=== PATIENT | male | born 1995 | race Caucasian/White ===

== ENCOUNTER → 2016-04-11 | Outpatient (CLI) | payer BC ==
[~2016-04-11] MED LIST: BACTRIM DS 8001 TAB PO; CELLCEPT 250MG250 MG PO; ENTOCORT EC3 MG PO; FISH OIL1000 MG PO; NO HOME MEDICATIONS; ZOFRAN 4MG T4 MG/TAB PO
== END ==
LOC: WCC 04-02 15:54
DX: L05.01 Pilonidal cyst with abscess (principal)
CPT/HCPCS: 27514; G0463

== ENCOUNTER → 2016-04-25 | Outpatient (CLI) | payer BC | LOC: WCC 09:51 | DX: L05.01 Pilonidal cyst with abscess (principal) | CPT/HCPCS: 21064; A6021; G0463 ==

== ENCOUNTER → 2016-05-23 | Outpatient (CLI) | payer BC | LOC: WCC 09:44 | DX: L05.01 Pilonidal cyst with abscess (principal) | CPT/HCPCS: 21064; A6021; G0463 ==

== ENCOUNTER → 2016-06-06 | Outpatient (CLI) | payer BC | LOC: WCC 10:23 | DX: L05.01 Pilonidal cyst with abscess (principal) | CPT/HCPCS: G0463 ==

== ENCOUNTER → 2016-06-09 | Outpatient (CLI) | payer BC | LOC: WCC 10:24 | DX: L05.01 Pilonidal cyst with abscess (principal) | CPT/HCPCS: G0463 ==

== ENCOUNTER → 2016-06-11 | Outpatient (CLI) | payer BC | LOC: WCC 11:23 | DX: L05.01 Pilonidal cyst with abscess (principal) | CPT/HCPCS: G0463 ==

== ENCOUNTER → 2016-06-13 | Outpatient (CLI) | payer BC | LOC: WCC 12:53 | DX: L05.01 Pilonidal cyst with abscess (principal) | CPT/HCPCS: G0463 ==

== ENCOUNTER → 2016-06-16 | Outpatient (CLI) | payer BC | LOC: WCC 08:40 | DX: L05.01 Pilonidal cyst with abscess (principal) | CPT/HCPCS: G0463 ==

== ENCOUNTER 2016-06-18 15:19 | Outpatient (RCR) | payer BC | END 2016-07-09 09:01 | disposition home or self-care (01) | LOC: EUO 15:19 | DX: Z48.01 Encounter for change or removal of surgical wound dressing (principal); L05.91 Pilonidal cyst without abscess ==

== ENCOUNTER → 2016-06-27 | Outpatient (CLI) | payer BC | LOC: WCC 14:38 | DX: L05.01 Pilonidal cyst with abscess (principal) | CPT/HCPCS: G0463 ==

== ENCOUNTER → 2016-07-21 | Outpatient (CLI) | payer BC | LOC: WCC 13:55 | DX: L05.01 Pilonidal cyst with abscess (principal) | CPT/HCPCS: G0463 ==

== ENCOUNTER → 2016-08-08 | Outpatient (CLI) | payer BC | LOC: WCC 09:50 | DX: T81.31XA Disruption of external operation (surgical) wound, not elsewhere classified, initial encounter (principal); L05.01 Pilonidal cyst with abscess | CPT/HCPCS: 17716; A6212; G0463 ==

== ENCOUNTER → 2016-08-22 | Outpatient (CLI) | payer BC | LOC: WCC 09:44 | DX: Z00.00 Encounter for general adult medical examination without abnormal findings (principal) ==

== ENCOUNTER → 2016-09-12 | Outpatient (CLI) | payer BC | LOC: WCC 09-04 11:11 | DX: L05.01 Pilonidal cyst with abscess (principal) | CPT/HCPCS: G0463 ==

== ENCOUNTER → 2016-10-14 | Outpatient (CLI) | payer BC | LOC: WCC 09-25 09:33 | DX: L05.01 Pilonidal cyst with abscess (principal) | CPT/HCPCS: G0463 ==

== ENCOUNTER → 2016-11-21 | Outpatient (CLI) | payer BC | LOC: WCC 09:04 | DX: L05.91 Pilonidal cyst without abscess (principal) | CPT/HCPCS: G0463 ==

== ENCOUNTER → 2016-12-05 | Outpatient (CLI) | payer BC | LOC: WCC 12-04 08:49 | DX: L05.91 Pilonidal cyst without abscess (principal) | CPT/HCPCS: G0463 ==

== ENCOUNTER → 2016-12-26 | Outpatient (CLI) | payer BC | LOC: WCC 13:09 | DX: L05.01 Pilonidal cyst with abscess (principal) | CPT/HCPCS: G0463 ==

== ENCOUNTER 2017-02-25 10:05 | Emergency (ER) | payer BC ==
[~2017-02-25] VITALS: Ht 188 cm; Wt 90.9 kg
[2017-02-25 10:07] VITALS: TEMP 98.6
[2017-02-25] MEDS ORDERED: OCALIVA5 MG PO (10:20)
[2017-02-25] MEDS ORDERED: URSO250 MG PO (10:23)
[2017-02-25 10:41] LABS: BASO % 0.2 % (0.0-2.0); EOS # 0.3 (0.0-0.7); EOS % 2.3 % (0-4.0); GRAN % 74.2 % (42.2-75.2); HEMATOCRIT 45.4 % (42.0-52.0); HEMOGLOBIN 15.2 g/dl (13.5-18.0); LYMPH # 1.9 (1.2-3.4); LYMPH % 15.9 % (20.0-51.0); MEAN CELL VOLUME 89 fl (80.0-100.0); MEAN CORPUSCULAR HEMOGLOBIN 30 pg (27.0-31.0); MEAN CORPUSCULAR HGB CONC 34 g/dl (33.0-37.0); MEAN PLATELET VOLUME 9.8 fl (7.4-10.4); MONO # 0.9 (0.1-0.6); MONO % 7.1 % (1.7-9.3); PLATELET COUNT 424 K/mm3 (130-400); RED BLOOD COUNT 5.08 M/mm3 (4.20-5.60); WHITE BLOOD COUNT 12.2 K/mm3 (4.8-10.8)
[2017-02-25 10:54] LABS: ADJUSTED CALCIUM 9.4 mg/dL (8.4-10.2); ALBUMIN 4.8 gm/dL (3.5-5.0); BILIRUBIN,TOTAL 0.8 mg/dL (0.0-1.0); POTASSIUM 4.1 mmol/L (3.4-5.0); TOTAL PROTEIN 8.9 gm/dL (6.4-8.2)
[2017-02-25 11:47] LABS: COLLECTION METHOD CLEAN CATCH
[2017-02-25 12:01] LABS: MUCOUS Present /lpf; PH 6 (5-8); SQUAMOUS EPITHELIAL None Seen /hpf; URINE APPEARANCE Clear; URINE BACTERIA None Seen /hpf; URINE BILIRUBIN Negative (NEGATIVE); URINE BLOOD Negative (NEGATIVE); URINE COLOR Yellow; URINE GLUCOSE Negative (NEGATIVE); URINE KETONE Trace (NEGATIVE); URINE LEUKOCYTE ESTERASE Negative (NEGATIVE); URINE PROTEIN(semi-quant) Negative (NEGATIVE); URINE RBC 0-2 /hpf; URINE UROBILINOGEN Negative (NEGATIVE); URINE WBC 0-2 /hpf
[2017-02-25] MEDS ORDERED: LEVAQUIN 5500 MG/TA1 PO (12:25)
[2017-02-25] MEDS ORDERED: NORCO 325 MG-51 TAB PO (12:33)
[2017-02-25 14:12] VITALS: BP 109/83; PULSE 87
== END 2017-02-25 14:14 | disposition home or self-care (01) ==
LOC: COL.ER 10:05
PROVIDERS: Family Medicine
DX: J18.9 Pneumonia, unspecified organism (principal); Z86.2 Personal history of diseases of the blood and blood-forming organs and certain disorders involving the immune mechanism
CPT/HCPCS: J0456; J0696; J1170; J1885; J2405; J7030; J7050; Q9967

== ENCOUNTER 2017-03-17 17:14 | Emergency (ER) | payer BC ==
[~2017-03-17] VITALS: Ht 188 cm; Wt 88.6 kg
[~2017-03-17 17:14] MED LIST changes: +LEVAQUIN 5500 MG/TA1 PO; +NORCO 325 MG-51 TAB PO; +OCALIVA5 MG PO; +URSO250 MG PO
[2017-03-17 17:22] VITALS: TEMP 97.7
[2017-03-17 17:45] LABS: COLLECTION METHOD CLEAN CATCH
[2017-03-17 17:58] LABS: BASO # 0.1 (0.0-0.2); BASO % 0.5 % (0.0-2.0); EOS # 0.4 (0.0-0.7); EOS % 3.5 % (0-4.0); GRAN % 65.2 % (42.2-75.2); HEMATOCRIT 44.2 % (42.0-52.0); HEMOGLOBIN 14.7 g/dl (13.5-18.0); LYMPH # 2.5 (1.2-3.4); LYMPH % 23.3 % (20.0-51.0); MEAN CELL VOLUME 90 fl (80.0-100.0); MEAN CORPUSCULAR HEMOGLOBIN 30 pg (27.0-31.0); MEAN CORPUSCULAR HGB CONC 33 g/dl (33.0-37.0); MONO # 0.8 (0.1-0.6); MONO % 7.2 % (1.7-9.3); PLATELET COUNT 471 K/mm3 (130-400); RED BLOOD COUNT 4.92 M/mm3 (4.20-5.60); WHITE BLOOD COUNT 10.7 K/mm3 (4.8-10.8)
[2017-03-17 18:07] LABS: ADJUSTED CALCIUM 9.5 mg/dL (8.4-10.2); ALBUMIN 4.8 gm/dL (3.5-5.0); BILIRUBIN,TOTAL 0.8 mg/dL (0.0-1.0); CALCIUM 10.1 mg/dL (8.4-10.2); CREATININE, serum 0.99 mg/dL (0.66-1.25); POTASSIUM 3.7 mmol/L (3.4-5.0); TOTAL PROTEIN 8.7 gm/dL (6.4-8.2)
[2017-03-17 18:28] LABS: MUCOUS Present /lpf; PH 6 (5-8); SQUAMOUS EPITHELIAL 0-2 /hpf; URINE APPEARANCE Hazy; URINE BACTERIA None Seen /hpf; URINE BILIRUBIN Negative (NEGATIVE); URINE BLOOD 2+ (NEGATIVE); URINE CALCIUM OXALATE CRYSTAL Present /hpf; URINE COLOR Yellow; URINE GLUCOSE Negative (NEGATIVE); URINE KETONE Negative (NEGATIVE); URINE LEUKOCYTE ESTERASE Negative (NEGATIVE); URINE PROTEIN(semi-quant) 1+ (NEGATIVE); URINE RBC >50 /hpf; URINE UROBILINOGEN Negative (NEGATIVE)
[2017-03-17] MEDS ORDERED: FLOMAX 0.40.4 MG/CAP PO (19:57)
[2017-03-17] MEDS ORDERED: CEPHALEXIN500 M1 PO (19:57)
[2017-03-17] MEDS ORDERED: PERCOCET 325 MG1 TA2 PO (19:57)
[2017-03-17] MEDS ORDERED: ROXICODONE 55 MG/TAB PO (20:09)
[2017-03-17 20:12] VITALS: BP 132/82; PULSE 76
== END 2017-03-17 20:13 | disposition home or self-care (01) ==
LOC: COL.ER 17:14
PROVIDERS: Emergency Medicine
DX: N20.0 Calculus of kidney (principal); K75.4 Autoimmune hepatitis
CPT/HCPCS: J1170; J1885; J7030; J7050; Q9967

== ENCOUNTER 2017-03-20 15:49 | Emergency (ER) | payer BC ==
[~2017-03-20] VITALS: Ht 188 cm; Wt 88.6 kg
[~2017-03-20 15:49] MED LIST changes: +CEPHALEXIN500 M1 PO; +FLOMAX 0.40.4 MG/CAP PO; +PERCOCET 325 MG1 TA2 PO; +ROXICODONE 55 MG/TAB PO
[2017-03-20 16:28] LABS: COLLECTION METHOD CLEAN CATCH
[2017-03-20 16:36] LABS: MUCOUS Present /lpf; PH 5 (5-8); SQUAMOUS EPITHELIAL None Seen /hpf; URINE APPEARANCE Clear; URINE BACTERIA None Seen /hpf; URINE BILIRUBIN Negative (NEGATIVE); URINE BLOOD 1+ (NEGATIVE); URINE COLOR Yellow; URINE GLUCOSE Negative (NEGATIVE); URINE KETONE Trace (NEGATIVE); URINE LEUKOCYTE ESTERASE Negative (NEGATIVE); URINE NITRATE Negative (NEGATIVE); URINE PROTEIN(semi-quant) Negative (NEGATIVE)
[2017-03-20 16:46] LABS: BASO # 0.1 (0.0-0.2); BASO % 0.4 % (0.0-2.0); EOS # 0.2 (0.0-0.7); GRAN # 9.6 (1.4-6.5); GRAN % 78.8 % (42.2-75.2); HEMATOCRIT 42.1 % (42.0-52.0); LYMPH # 1.5 (1.2-3.4); MEAN CELL VOLUME 91 fl (80.0-100.0); MEAN CORPUSCULAR HEMOGLOBIN 30 pg (27.0-31.0); MEAN CORPUSCULAR HGB CONC 33 g/dl (33.0-37.0); MEAN PLATELET VOLUME 10.2 fl (7.4-10.4); MONO # 0.8 (0.1-0.6); MONO % 6.5 % (1.7-9.3); PLATELET COUNT 425 K/mm3 (130-400); RED BLOOD COUNT 4.64 M/mm3 (4.20-5.60); REDCELL DISTRIBUTION WIDTH-CV 12.7 % (11.5-14.5)
[2017-03-20 16:53] LABS: ALBUMIN 4.7 gm/dL (3.5-5.0); BILIRUBIN,TOTAL 0.7 mg/dL (0.0-1.0); CALCIUM 9.9 mg/dL (8.4-10.2); CREATININE, serum 0.93 mg/dL (0.66-1.25); POTASSIUM 4.2 mmol/L (3.4-5.0); TOTAL PROTEIN 8.7 gm/dL (6.4-8.2)
[2017-03-20 18:54] VITALS: BP 161/83; PULSE 63; TEMP 97.1
== END 2017-03-20 18:51 | disposition home or self-care (01) ==
LOC: COL.ER 15:49
PROVIDERS: Emergency Medicine
DX: N20.1 Calculus of ureter (principal)
CPT/HCPCS: J1170; J2270; J7030

== ENCOUNTER 2017-08-02 13:41 | Emergency (ER) | payer OTHER ==
[~2017-08-02] VITALS: Ht 188 cm; Wt 82.7 kg
[2017-08-02 13:45] VITALS: TEMP 98.6
[2017-08-02 14:57] LABS: BASO # 0.1 (0.0-0.2); BASO % 0.8 % (0.0-2.0); EOS # 0.9 (0.0-0.7); EOS % 11.2 % (0-4.0); GRAN # 4.7 (1.4-6.5); GRAN % 61.2 % (42.2-75.2); HEMOGLOBIN 10.2 g/dl (13.5-18.0); LYMPH # 1.5 (1.2-3.4); LYMPH % 18.9 % (20.0-51.0); MEAN CELL VOLUME 82 fl (80.0-100.0); MEAN CORPUSCULAR HEMOGLOBIN 26 pg (27.0-31.0); MEAN CORPUSCULAR HGB CONC 32 g/dl (33.0-37.0); MEAN PLATELET VOLUME 10.2 fl (7.4-10.4); MONO # 0.6 (0.1-0.6); MONO % 7.6 % (1.7-9.3); PLATELET COUNT 474 K/mm3 (130-400); RED BLOOD COUNT 3.89 M/mm3 (4.20-5.60)
[2017-08-02 15:02] LABS: HEMATOCRIT 31.7 % (42.0-52.0)
[2017-08-02 15:03] LABS: ALBUMIN 3.3 gm/dL (3.5-5.0); C-REACTIVE PROTEIN 4.8 mg/dL (0.0-0.9); CALCIUM 8.7 mg/dL (8.4-10.2); CREATININE, serum 0.95 mg/dL (0.66-1.25); POTASSIUM 3.7 mmol/L (3.4-5.0); TOTAL PROTEIN 7.6 gm/dL (6.4-8.2)
[2017-08-02 15:25] LABS: ERYTHROCYTE SEDIMENTATION RATE 48 mm/hr (0-15)
[2017-08-02] MEDS ORDERED: PREDNISONE10 MG PO (15:59)
[2017-08-02] MEDS ORDERED: ULTRAM 50MG TAB50 MG PO (16:13)
[2017-08-02 16:27] LABS: COLLECTION METHOD CLEAN CATCH
[2017-08-02 16:33] LABS: MUCOUS Present /lpf; PH 5 (5-8); SQUAMOUS EPITHELIAL None Seen /hpf; URINE APPEARANCE Clear; URINE BACTERIA None Seen /hpf; URINE BILIRUBIN Negative (NEGATIVE); URINE BLOOD Negative (NEGATIVE); URINE COLOR Amber; URINE GLUCOSE Negative (NEGATIVE); URINE KETONE Negative (NEGATIVE); URINE LEUKOCYTE ESTERASE Negative (NEGATIVE); URINE NITRATE Negative (NEGATIVE); URINE PROTEIN(semi-quant) Negative (NEGATIVE); URINE RBC 0-2 /hpf
[2017-08-02 16:57] VITALS: BP 123/85; PULSE 93
== END 2017-08-02 16:58 | disposition home or self-care (01) ==
LOC: COL.ER 13:41
PROVIDERS: Physician Assistant
DX: K51.90 Ulcerative colitis, unspecified, without complications (principal); K75.4 Autoimmune hepatitis; R74.0 Nonspecific elevation of levels of transaminase and lactic acid dehydrogenase [LDH]; Z87.2 Personal history of diseases of the skin and subcutaneous tissue; Z91.19 Patient's noncompliance with other medical treatment and regimen
CPT/HCPCS: J2930; J7030

== ENCOUNTER → 2017-08-03 | Outpatient (CLI) | payer OTHER ==
[~2017-08-03] MED LIST changes: +PREDNISONE10 MG PO; +ULTRAM 50MG TAB50 MG PO
== END ==
LOC: COL.LAB 21:14
DX: R19.7 Diarrhea, unspecified (principal)

== ENCOUNTER 2018-03-08 15:00 | Outpatient (RCR) | payer OTHER ==
[2018-02-23 08:10] VITALS: BP 130/75; PULSE 79; TEMP 97.9
[2018-03-01 16:15] VITALS: BP 122/75; PULSE 80; TEMP 98.1
[2018-03-04 09:11] VITALS: BP 131/77; PULSE 68; TEMP 97.3
[~2018-03-08] VITALS: Ht 188 cm; Wt 87.0 kg
[~2018-03-08 15:00] MED LIST changes: +PURINETHOL 50MG50 MG PO
[2018-03-08 15:30] VITALS: BP 124/65; PULSE 64; TEMP 98.2
== END 2018-03-08 16:35 | disposition home or self-care (01) ==
LOC: EUO 15:00
DX: E61.1 Iron deficiency (principal)
CPT/HCPCS: J2916